=== PATIENT | male | born 1950 | race Caucasian/White ===

== ENCOUNTER 2017-01-25 10:49 | Inpatient (IN) | payer OTHER ==
[~2017-01-25] VITALS: Ht 180.3 cm; Wt 101.3 kg
[2017-01-25] MEDS ORDERED: cloNIDine HCL 0.1 MG TAB ONE (11:19)
[2017-01-25] MEDS ORDERED: cloNIDine HCL 0.1 MG TAB PO ONE (11:30)
[2017-01-25 12:08] LABS: Basophils # (auto) 0 uL; Basophils % (auto) 0.7 % (0.0-2.0); CONDITION Y; Eosinophils # (auto) 0.3 uL; Eosinophils % (auto) 3.8 % (0.0-7.0); Hematocrit 50.4 % (41.0-53.0); Lymphocytes # (auto) 2.3 uL; Lymphocytes % (auto) 31.3 % (10.0-50.0); Mean Corpuscular Hemoglobin 31.5 pg (28.0-32.0); Mean Corpuscular Hgb Conc. 33.7 g/dL (32.0-36.0); Mean Corpuscular Volume 93.4 fL (80.0-100.0); Mean Platelet Volume 8.4 fL (7.4-10.4); Monocytes # (auto) 0.6 uL; Monocytes % (auto) 7.7 % (0.0-12.0); Neutrophils # (auto) 4.1 uL; Neutrophils % (auto) 56.5 % (37.0-80.0); Platelet Count (auto) 286 10^3/uL (140-450); Red Cell Distribution Width 14.7 % (11.6-16.0); White Blood Cell 7.2 10^3/uL (4.4-10.8)
[2017-01-25 12:11] LABS: Urine Bilirubin Negative (Negative); Urine Blood Negative /uL (Negative); Urine Color Yellow (Yellow); Urine Glucose Normal (Normal); Urine Ketone Negative (Negative); Urine Mucus FEW (None Seen); Urine Nitrite Negative (Negative); Urine RBC <1 /hpf (0 - 3); Urine Urobilinogen Normal (Negative); Urine pH 5.5 (5.0-8.0)
[2017-01-25 12:37] LABS: Albumin 3.9 g/dL (3.4-5.0); BUN/Creatinine Ratio 10.2; Bilirubin, Total 0.4 mg/dL (0.2-1.0); Calcium 8.8 mg/dL (8.5-10.1); Magnesium 2.6 mg/dL (1.6-2.6); Potassium 4.3 mmol/L (3.5-5.1); Total Protein 7.7 g/dL (6.4-8.2)
[2017-01-25] MEDS ORDERED: NITROGLYCERIN 0.4 MG SL TAB SL ONE (13:00)
[2017-01-25] MEDS ORDERED: SODIUM CHLORIDE 0.9% 1,000 ML IV ONE (17:01)
[2017-01-25] MEDS ORDERED: METOPROLOL TARTRATE 1MG/1ML-5ML VIAL IV ONE (17:15)
[2017-01-25] MEDS ORDERED: ASPirin 81 mg TAB PO ONE (17:15)
[2017-01-25 17:50] LABS: INR 0.98 (0.9-1.15); Partial Thromboplastin Time 26.5 sec (22.64-33.71); Prothrombin Time 10.7 sec (9.37-12.3)
[2017-01-25] MEDS ORDERED: TEMAZEPAM 15 MG CAP PO PRN (18:45)
[2017-01-25] MEDS: SODIUM CHLORIDE 0.9% 1,000 ML IV SCH (18:45)
[2017-01-25] MEDS ORDERED: NITROGLYCERIN 0.4 MG SL TAB SL PRN (18:45)
[2017-01-25] MEDS ORDERED: LACTULOSE 20Gm/30ML SOLN PO PRN (18:45)
[2017-01-25] MEDS ORDERED: ACETAMINOPHEN 500 MG TAB PO PRN (18:45)
[2017-01-25] MEDS ORDERED: HYDROcodone-ACET 5/325MG TAB PO PRN (18:45)
[2017-01-25] MEDS ORDERED: PROMETHAZINE HCL 25 MG/ML 1ML IV PRN (18:45)
[2017-01-25] MEDS ORDERED: MORPHINE SULF INJ 2 MG/ML SYRINGE 1ML IV PRN ×2 (18:45)
[2017-01-25] MEDS ORDERED: ENALAPRIL MALEATE 10 MG TAB PO ONE (19:00)
[2017-01-25] MEDS ORDERED: PANTOPRAZOLE 40 MG TAB PO ONE (19:00)
[2017-01-25] MEDS ORDERED: ENOXAPARIN SOD 100 MG/1 ML SYRINGE SC ONE (19:13)
[2017-01-25] MEDS ORDERED: NITROGLYCERIN 50MG/250ML 250 ML IV SCH (20:15)
[2017-01-25] MEDS: ATORVASTATIN 20 MG TAB PO SCH (22:05)
[2017-01-25] MEDS: METOPROLOL TARTRATE 25 MG TAB PO SCH (22:06)
[2017-01-26] MEDS: LORazepam 0.5 MG TAB PO PRN ×2 (00:35→20:34)
[2017-01-26 06:41] LABS: Basophils # (auto) 0 uL; Basophils % (auto) 0.5 % (0.0-2.0); CONDITION Y; Eosinophils # (auto) 0.3 uL; Eosinophils % (auto) 3.7 % (0.0-7.0); Hematocrit 47.6 % (41.0-53.0); Hemoglobin 16.2 g/dL (13.5-17.5); Lymphocytes # (auto) 2.2 uL; Lymphocytes % (auto) 25.8 % (10.0-50.0); Mean Corpuscular Hemoglobin 31.8 pg (28.0-32.0); Mean Corpuscular Hgb Conc. 34.1 g/dL (32.0-36.0); Mean Corpuscular Volume 93.3 fL (80.0-100.0); Mean Platelet Volume 8.5 fL (7.4-10.4); Monocytes # (auto) 0.7 uL; Monocytes % (auto) 7.8 % (0.0-12.0); Neutrophils # (auto) 5.4 uL; Neutrophils % (auto) 62.2 % (37.0-80.0); Platelet Count (auto) 253 10^3/uL (140-450); Red Cell Distribution Width 14.6 % (11.6-16.0); White Blood Cell 8.7 10^3/uL (4.4-10.8)
[2017-01-26 07:19] LABS: Albumin 3.4 g/dL (3.4-5.0); BUN/Creatinine Ratio 12.8; Bilirubin, Total 0.5 mg/dL (0.2-1.0); Calcium 8.4 mg/dL (8.5-10.1); Total Protein 6.6 g/dL (6.4-8.2)
[2017-01-26] MEDS: SODIUM CHLORIDE 0.9% 1,000 ML IV SCH ×2 (07:54→21:44)
[2017-01-26] MEDS ORDERED: NITROGLYCERIN 0.2MG/HR TOPICAL PATCH TD SCH (10:00)
[2017-01-26] MEDS: ENOXAPARIN SOD 40 MG/0.4 ML SYRINGE SC SCH (10:27)
[2017-01-26] MEDS: PANTOPRAZOLE 40 MG TAB PO SCH (10:27)
[2017-01-26] MEDS: METOPROLOL TARTRATE 25 MG TAB PO SCH ×2 (10:27→21:41)
[2017-01-26] MEDS: ASPirin 81 mg TAB PO SCH (10:27)
[2017-01-26] MEDS: ENALAPRIL MALEATE 10 MG TAB PO SCH (10:30)
[2017-01-26] MEDS ORDERED: TRAM50TA2 PO (16:15)
[2017-01-26] MEDS ORDERED: ALPR0.5T PO (16:15)
[2017-01-26] MEDS ORDERED: GABA800T97 PO (16:15)
[2017-01-26 20:00] VITALS: BP 151/71
[2017-01-26] MEDS: ATORVASTATIN 20 MG TAB PO SCH (21:40)
[2017-01-26 22:00] VITALS: BP 151/91
[2017-01-27] VITALS (8 sets, daily range): BP systolic 101–167; BP diastolic 71–102
[2017-01-27] MEDS ORDERED: IODIXANOL 320MG/ML 100ML BTL IV ONE (09:18)
[2017-01-27] MEDS ORDERED: LIDOCAINE 2%HCL (LOCAL ANESTH.) INJ 20ML MDV ONE (09:18)
[2017-01-27] MEDS: ENALAPRIL MALEATE 10 MG TAB PO SCH (10:00)
[2017-01-27] MEDS: METOPROLOL TARTRATE 25 MG TAB PO SCH ×2 (10:00→22:28)
[2017-01-27] MEDS: PANTOPRAZOLE 40 MG TAB PO SCH (10:00)
[2017-01-27] MEDS: ASPirin 81 mg TAB PO SCH (10:00)
[2017-01-27] MEDS: ENOXAPARIN SOD 40 MG/0.4 ML SYRINGE SC SCH (10:00)
[2017-01-27] MEDS: SODIUM CHLORIDE 0.9% 1,000 ML IV SCH ×2 (10:34→23:54)
[2017-01-27] MEDS ORDERED: SODIUM CHL 0.9% 0 ML ONE (10:40)
[2017-01-27] MEDS ORDERED: MIDAZOLAM HCL 1MG/1ML-2 ML VIAL ONE ×3 (10:40→12:22)
[2017-01-27] MEDS ORDERED: fentaNYL CITRATE 100 MCG/2 ML VL ONE ×2 (10:40→12:23)
[2017-01-27] MEDS ORDERED: ANGIOMAX 250 MG VIAL IV ONE ×2 (10:40→11:57)
[2017-01-27] MEDS ORDERED: hydrALAZINE HCL 20 MG/ML VL ONE (11:18)
[2017-01-27] MEDS ORDERED: HYDROmorphone HCL 2 MG/ML VL ONE (11:47)
[2017-01-27] MEDS ORDERED: SODIUM CHL 0.9% 50 ML ONE (11:57)
[2017-01-27] MEDS ORDERED: ETOMIDATE (2MG/ML) 20ML VIAL IV ONE (12:08)
[2017-01-27] MEDS ORDERED: SUCCINYLCHOLINE CHLORIDE 20 MG/ML 10ML VIAL IV ONE (12:08)
[2017-01-27] MEDS ORDERED: MAGNESIUM SULFATE 1GM/100ML 200 ML IV ONE (12:19)
[2017-01-27] MEDS ORDERED: NITROGLYCERIN 50MG/250ML 250 ML IV ONE (12:19)
[2017-01-27] MEDS ORDERED: MIDAZOLAM DRIP 50 mg/50mL NS 50 ML IV ONE (12:22)
[2017-01-27] MEDS ORDERED: IOHEXOL 350 MG/ML 100ML IJ ONE (12:26)
[2017-01-27] MEDS ORDERED: PROPOFOL 100 ML IV ONE (12:29)
[2017-01-27] MEDS ORDERED: AMIODARONE HCL (50 MG/ ML) 3 ML VIAL IV ONE (12:43)
[2017-01-27] MEDS: SODIUM BICARBONATE 50ML VIAL 150 ML in D5W 5% 1,000 ML IV SCH (13:00)
[2017-01-27] MEDS ORDERED: EPTIFIBATIDE INJ (2MG/ML) 10ML VIAL IV ONE (13:13)
[2017-01-27] MEDS ORDERED: NOREPINEPHRINE BITARTRATE 250 ML IV ONE (13:21)
[2017-01-27] MEDS ORDERED: ADENOSINE 6 MG/2 ML INJ IV ONE (13:26)
[2017-01-27] MEDS ORDERED: EPTIFIBATIDE DRIP(0.75MG/ML) 100 ML IV ONE (13:35)
[2017-01-27] MEDS ORDERED: ASPirin 325 MG TAB ONE (15:03)
[2017-01-27] MEDS ORDERED: CLOPIDOGREL 300 MG TAB ONE (15:03)
[2017-01-27 15:19] LABS: Blood 02Sat 98.3 % (96-100); Blood COHb 0.9 % (0.5-1.5); Blood MetHb 0.5 % (0.0-1.5); HCO3 22.7 mmol/L (22-26.0); HHb 1.7 % (0.0-5.0); MODE VENT - A/C; O2Hb 96.9 % (94.0-97.0); PCO2 35.2 mmHg (35.0-45.0); PCO2(T) 35.2 mmHg (35.0-45.0); PO2 119.2 mmHg (80.0-100.0); PO2(T) 119.2 mmHg (80.0-100.0); Room 0289T; Sample Type Arterial; pH 7.427 (7.350-7.450)
[2017-01-27] MEDS ORDERED: AMIODARONE HCL 900 MG in DEXTROSE 500 ML IV SCH ×2 (15:41→21:41)
[2017-01-27] MEDS ORDERED: NITROGLYCERIN 50MG/250ML 250 ML IV SCH (15:45)
[2017-01-27] MEDS ORDERED: EPTIFIBATIDE DRIP(0.75MG/ML) 100 ML IV SCH (15:45)
[2017-01-27] MEDS ORDERED: CLOPIDOGREL 300 MG TAB PO ONE (15:45)
[2017-01-27] MEDS ORDERED: ASPirin 325 MG TAB PO ONE (15:45)
[2017-01-27] MEDS: MIDAZOLAM DRIP 50 mg/50mL NS 50 ML IV SCH (18:00)
[2017-01-27 18:11] LABS: Basophils # (auto) 0 uL; Basophils % (auto) 0.1 % (0.0-2.0); CONDITION Y; Eosinophils # (auto) 0.1 uL; Eosinophils % (auto) 0.5 % (0.0-7.0); Hematocrit 51.6 % (41.0-53.0); Hemoglobin 17.3 g/dL (13.5-17.5); Lymphocytes # (auto) 1.6 uL; Lymphocytes % (auto) 12.6 % (10.0-50.0); Mean Corpuscular Hemoglobin 30.9 pg (28.0-32.0); Mean Corpuscular Hgb Conc. 33.4 g/dL (32.0-36.0); Mean Corpuscular Volume 92.5 fL (80.0-100.0); Mean Platelet Volume 8.6 fL (7.4-10.4); Monocytes # (auto) 1.2 uL; Monocytes % (auto) 9.4 % (0.0-12.0); Neutrophils % (auto) 77.4 % (37.0-80.0); Platelet Count (auto) 283 10^3/uL (140-450); Red Cell Distribution Width 14.5 % (11.6-16.0); White Blood Cell 12.9 10^3/uL (4.4-10.8)
[2017-01-27 18:15] LABS: Calcium 8.2 mg/dL (8.5-10.1)
[2017-01-27] MEDS: PROPOFOL 100 ML IV SCH (18:15)
[2017-01-27 18:19] LABS: Potassium 3.9 mmol/L (3.5-5.1)
[2017-01-27] MEDS: ATORVASTATIN 20 MG TAB PO SCH (22:26)
[2017-01-28] VITALS (30 sets, daily range): BP systolic 88–156; BP diastolic 44–82
[2017-01-28] MEDS: SODIUM BICARBONATE 50ML VIAL 150 ML in D5W 5% 1,000 ML IV SCH (00:30)
[2017-01-28 04:02] LABS: Basophils # (auto) 0 uL; Basophils % (auto) 0.2 % (0.0-2.0); CONDITION Y; Eosinophils # (auto) 0 uL; Eosinophils % (auto) 0.1 % (0.0-7.0); Hematocrit 47.9 % (41.0-53.0); Hemoglobin 16.4 g/dL (13.5-17.5); Lymphocytes # (auto) 0.8 uL; Lymphocytes % (auto) 5.5 % (10.0-50.0); Mean Corpuscular Hemoglobin 31.6 pg (28.0-32.0); Mean Corpuscular Hgb Conc. 34.3 g/dL (32.0-36.0); Mean Platelet Volume 8.7 fL (7.4-10.4); Monocytes # (auto) 1.3 uL; Monocytes % (auto) 9.4 % (0.0-12.0); Neutrophils # (auto) 11.9 uL; Neutrophils % (auto) 84.8 % (37.0-80.0); Platelet Count (auto) 271 10^3/uL (140-450); Red Cell Distribution Width 14.5 % (11.6-16.0)
[2017-01-28 04:30] LABS: Albumin 3.5 g/dL (3.4-5.0); BUN/Creatinine Ratio 16.7; Bilirubin, Total 0.6 mg/dL (0.2-1.0); Calcium 8.2 mg/dL (8.5-10.1); Potassium 3.3 mmol/L (3.5-5.1); Total Protein 7.1 g/dL (6.4-8.2)
[2017-01-28 05:07] LABS: INR 1.04 (0.9-1.15); Prothrombin Time 11.3 sec (9.37-12.3)
[2017-01-28] MEDS ORDERED: NOREPINEPHRINE BITARTRATE 250 ML IV ONE (07:33)
[2017-01-28] MEDS: NOREPINEPHRINE BITARTRATE 250 ML IV SCH (07:40)
[2017-01-28] MEDS ORDERED: POTASSIUM CHL 20MEQ/100ML 200 ML IV ONE (07:55)
[2017-01-28 08:00] LABS: Allen Test Modified; Base Excess -0.3 mmol/L (-2.0-2.0); Blood MetHb 0.3 % (0.0-1.5); HCO3 22.4 mmol/L (22-26.0); HHb 7.9 % (0.0-5.0); MODE VENT - A/C; O2Hb 90.8 % (94.0-97.0); PCO2 32.1 mmHg (35.0-45.0); PCO2(T) 32.1 mmHg (35.0-45.0); PO2 58.9 mmHg (80.0-100.0); PO2(T) 58.9 mmHg (80.0-100.0); Sample Type Arterial; pH 7.462 (7.350-7.450)
[2017-01-28] MEDS: POTASSIUM CHL 20MEQ/100ML 100 ML IV SCH ×2 (08:15→10:15)
[2017-01-28] MEDS ORDERED: VANCOMYCIN PER PHARMACY 0 MG IV SCH (08:45)
[2017-01-28] MEDS: PROPOFOL 100 ML IV SCH ×3 (10:00→17:48)
[2017-01-28] MEDS: METOPROLOL TARTRATE 25 MG TAB PO SCH ×2 (10:00→11:48)
[2017-01-28] MEDS: ENALAPRIL MALEATE 10 MG TAB PO SCH (10:00)
[2017-01-28] MEDS ORDERED: PANTOPRAZOLE SODIUM 40 MG/10 ML VIAL IV ONE (10:34)
[2017-01-28] MEDS: MIDAZOLAM DRIP 50 mg/50mL NS 50 ML IV SCH ×2 (10:43→16:48)
[2017-01-28] MEDS: ASPirin 81 mg TAB PO SCH (10:52)
[2017-01-28] MEDS: VANCOMYCIN 1GM/250ML D5W 250 ML IV SCH ×2 (10:52→17:49)
[2017-01-28] MEDS: CLOPIDOGREL BISULFATE 75 MG TAB PO SCH (10:52)
[2017-01-28] MEDS ORDERED: DOPamine 1600MCG/ML 250 ML IV ONE (12:24)
[2017-01-28] MEDS ORDERED: ACETAMINOPHEN 650 mg PER 20 mL UD ONE ×2 (12:29→12:54)
[2017-01-28] MEDS: DOPamine 1600MCG/ML 250 ML IV SCH (12:54)
[2017-01-28] MEDS ORDERED: ACETAMINOPHEN 650 mg PER 20 mL UD GT PRN (13:30)
[2017-01-28] MEDS: SODIUM CHLORIDE 0.9% 1,000 ML IV SCH ×2 (13:34→17:30)
[2017-01-28] MEDS: FAMOTIDINE (10MG/ML) 2ML VL IV SCH ×2 (14:00→22:00)
[2017-01-28] MEDS ORDERED: LIDOCAINE 1% HCL (LOCAL ANESTH.) INJ 20ML MDV ID ONE (18:00)
[2017-01-28] MEDS ORDERED: DEXTROSE (50%) 50ML SYRG IV PRN (19:00)
[2017-01-28] MEDS: ATORVASTATIN 20 MG TAB PO SCH (22:00)
[2017-01-28] MEDS: SODIUM CHLOR 0.9% PF (SALINE LOCK) 10ML VIAL IV SCH (22:00)
[2017-01-29] VITALS (31 sets, daily range): BP systolic 98–144; BP diastolic 51–90
[2017-01-29] MEDS: VANCOMYCIN 1GM/250ML D5W 250 ML IV SCH ×3 (02:26→18:00)
[2017-01-29 04:09] LABS: Basophils # (auto) 0 uL; Basophils % (auto) 0.2 % (0.0-2.0); CONDITION Y; Eosinophils # (auto) 0 uL; Eosinophils % (auto) 0.2 % (0.0-7.0); Hematocrit 45.4 % (41.0-53.0); Hemoglobin 15.5 g/dL (13.5-17.5); Lymphocytes % (auto) 6.6 % (10.0-50.0); Mean Corpuscular Hemoglobin 31.5 pg (28.0-32.0); Mean Corpuscular Hgb Conc. 34.1 g/dL (32.0-36.0); Mean Corpuscular Volume 92.4 fL (80.0-100.0); Mean Platelet Volume 8.8 fL (7.4-10.4); Monocytes # (auto) 1.3 uL; Monocytes % (auto) 8.2 % (0.0-12.0); Neutrophils # (auto) 13.2 uL; Neutrophils % (auto) 84.8 % (37.0-80.0); Platelet Count (auto) 215 10^3/uL (140-450); Red Cell Distribution Width 14.9 % (11.6-16.0); White Blood Cell 15.6 10^3/uL (4.4-10.8)
[2017-01-29 04:22] LABS: INR 1.11 (0.9-1.15); Partial Thromboplastin Time 27.3 sec (22.64-33.71); Prothrombin Time 12.1 sec (9.37-12.3)
[2017-01-29 04:31] LABS: Albumin 2.8 g/dL (3.4-5.0); BUN/Creatinine Ratio 13.3; Calcium 7.4 mg/dL (8.5-10.1); Potassium 3.5 mmol/L (3.5-5.1)
[2017-01-29 04:34] LABS: Bilirubin, Total 0.6 mg/dL (0.2-1.0); Total Protein 6.2 g/dL (6.4-8.2)
[2017-01-29] MEDS: InsuLIN REG 1unit/0.01ml Soln (100units/ml) SC SCH ×5 (06:25→23:45)
[2017-01-29] MEDS: ACCU-CHEK COMFORT CURVE STRIP VI SCH ×5 (06:25→23:45)
[2017-01-29] MEDS: SODIUM CHLORIDE 0.9% 1,000 ML IV SCH ×4 (08:00→20:00)
[2017-01-29] MEDS: DOPamine 1600MCG/ML 250 ML IV SCH (08:00)
[2017-01-29 08:16] LABS: Allen Test No; Blood 02Sat 97.2 % (96-100); Blood MetHb 0.3 % (0.0-1.5); HCO3 24.2 mmol/L (22-26.0); HHb 2.8 % (0.0-5.0); MODE VENT - A/C; O2Hb 95.9 % (94.0-97.0); PCO2 38.4 mmHg (35.0-45.0); PCO2(T) 38.4 mmHg (35.0-45.0); PIP 19; PO2 98.7 mmHg (80.0-100.0); PO2(T) 98.7 mmHg (80.0-100.0); Sample Type Arterial; pH 7.418 (7.350-7.450)
[2017-01-29] MEDS: MIDAZOLAM DRIP 50 mg/50mL NS 50 ML IV SCH ×2 (08:40→16:00)
[2017-01-29] MEDS: PROPOFOL 100 ML IV SCH ×3 (08:45→17:34)
[2017-01-29] MEDS ORDERED: IOHEXOL 350 MG/ML 100ML IJ ONE (08:48)
[2017-01-29] MEDS ORDERED: LIDOCAINE 2%HCL (LOCAL ANESTH.) INJ 20ML MDV ONE (08:49)
[2017-01-29] MEDS: NOREPINEPHRINE BITARTRATE 250 ML IV SCH (09:00)
[2017-01-29] MEDS ORDERED: SODIUM CHL 0.9% 50 ML ONE (09:17)
[2017-01-29] MEDS ORDERED: ANGIOMAX 250 MG VIAL IV ONE (09:17)
[2017-01-29] MEDS ORDERED: ATROPINE SULF 0.5 MG/5ML SYR ONE (09:35)
[2017-01-29] MEDS: CLOPIDOGREL BISULFATE 75 MG TAB PO SCH (10:00)
[2017-01-29] MEDS: ASPirin 81 mg TAB PO SCH (10:00)
[2017-01-29] MEDS: FAMOTIDINE (10MG/ML) 2ML VL IV SCH ×2 (10:00→21:42)
[2017-01-29] MEDS ORDERED: PANTOPRAZOLE SODIUM 40 MG/10 ML VIAL IV SCH (10:00)
[2017-01-29] MEDS: METOPROLOL TARTRATE 25 MG TAB PO SCH (10:00)
[2017-01-29] MEDS: ENALAPRIL MALEATE 10 MG TAB PO SCH (10:00)
[2017-01-29] MEDS ORDERED: HEPARIN SODIUM (PORCINE) 5000 UNITS/ML 1ML VIAL ONE (10:49)
[2017-01-29] MEDS ORDERED: HEPARIN DRIP/D5W 100UNITS/ML 250 ML IV SCH (11:53)
[2017-01-29 11:59] LABS: Allen Test No; Base Excess -4.7 mmol/L (-2.0-2.0); Blood 02Sat 97.7 % (96-100); Blood MetHb 0.2 % (0.0-1.5); HCO3 19.8 mmol/L (22-26.0); HHb 2.3 % (0.0-5.0); MODE VENT - A/C; O2Hb 96.5 % (94.0-97.0); PCO2 35.5 mmHg (35.0-45.0); PCO2(T) 35.5 mmHg (35.0-45.0); PIP 20; PO2 102.7 mmHg (80.0-100.0); PO2(T) 102.7 mmHg (80.0-100.0); Sample Type Arterial; pH 7.364 (7.350-7.450)
[2017-01-29] MEDS: SODIUM CHLOR 0.9% PF (SALINE LOCK) 10ML VIAL IV SCH ×2 (12:00→21:42)
[2017-01-29] MEDS ORDERED: HEPARIN SODIUM (PORCINE) 5000 UNITS/ML 1ML VIAL IV ONE (12:00)
[2017-01-29] MEDS ORDERED: SODIUM CHLORIDE 0.9% 300 ML IV ONE (12:15)
[2017-01-29] MEDS: POTASSIUM CHL 20MEQ/100ML 100 ML IV SCH ×2 (13:00→15:30)
[2017-01-29] MEDS: HEPARIN DRIP/D5W 100UNITS/ML 250 ML IV SCH (13:59)
[2017-01-29] MEDS ORDERED: POTASSIUM CHL 20MEQ/100ML 200 ML IV ONE (15:25)
[2017-01-29 16:42] LABS: Allen Test No; Base Excess -2.1 mmol/L (-2.0-2.0); Blood 02Sat 96.5 % (96-100); Blood COHb 0.7 % (0.5-1.5); Blood MetHb 0.3 % (0.0-1.5); HCO3 22.2 mmol/L (22-26.0); HHb 3.5 % (0.0-5.0); MODE VENT - A/C; O2Hb 95.5 % (94.0-97.0); PCO2 36.8 mmHg (35.0-45.0); PCO2(T) 36.8 mmHg (35.0-45.0); PIP 20; Sample Type Arterial; pH 7.398 (7.350-7.450)
[2017-01-29 18:17] LABS: INR 1.05 (0.9-1.15); Partial Thromboplastin Time 41.8 sec (22.64-33.71); Prothrombin Time 11.4 sec (9.37-12.3)
[2017-01-29] MEDS: ATORVASTATIN 20 MG TAB PO SCH (21:42)
[2017-01-29 22:23] LABS: Allen Test Yes; Base Excess -4.3 mmol/L (-2.0-2.0); Blood 02Sat 96.6 % (96-100); Blood COHb 0.5 % (0.5-1.5); Blood MetHb 0.3 % (0.0-1.5); HCO3 20.1 mmol/L (22-26.0); HHb 3.4 % (0.0-5.0); MODE VENT - A/C; O2Hb 95.8 % (94.0-97.0); PCO2 35.5 mmHg (35.0-45.0); PCO2(T) 35.5 mmHg (35.0-45.0); PO2 91.1 mmHg (80.0-100.0); PO2(T) 91.1 mmHg (80.0-100.0); Sample Type Arterial; pH 7.371 (7.350-7.450)
[2017-01-29] MEDS ORDERED: SODIUM BICARBONATE 8.4 % INJ 50ML VIAL IV ONE (22:30)
[2017-01-29] MEDS ORDERED: SODIUM BICARBONATE 8.4% INJ 50ML SYRINGE ONE (22:41)
[2017-01-29 23:08] LABS: INR 1.04 (0.9-1.15); Prothrombin Time 11.3 sec (9.37-12.3)
[2017-01-30] VITALS (16 sets, daily range): BP systolic 78–129; BP diastolic 60–78
[2017-01-30] MEDS: SODIUM CHLORIDE 0.9% 1,000 ML IV SCH ×2 (01:00→09:12)
[2017-01-30] MEDS: VANCOMYCIN 1GM/250ML D5W 250 ML IV SCH ×2 (01:49→09:54)
[2017-01-30] MEDS: MIDAZOLAM DRIP 50 mg/50mL NS 50 ML IV SCH ×3 (04:00→09:12)
[2017-01-30] MEDS: PROPOFOL 100 ML IV SCH ×3 (04:00→09:12)
[2017-01-30 04:08] LABS: INR 1.01 (0.9-1.15); Partial Thromboplastin Time 37.6 sec (22.64-33.71)
[2017-01-30 04:27] LABS: Magnesium 2.2 mg/dL (1.6-2.6); Potassium 3.8 mmol/L (3.5-5.1)
[2017-01-30 04:29] LABS: BUN/Creatinine Ratio 21.1; Calcium 7.1 mg/dL (8.5-10.1)
[2017-01-30 04:36] LABS: Basophils # (auto) 0.1 uL; Basophils % (auto) 0.6 % (0.0-2.0); Eosinophils # (auto) 0.1 uL; Eosinophils % (auto) 0.8 % (0.0-7.0); Lymphocytes # (auto) 1.2 uL; Lymphocytes % (auto) 8.3 % (10.0-50.0); Monocytes % (auto) 6.7 % (0.0-12.0); Neutrophils # (auto) 12.2 uL; Neutrophils % (auto) 83.6 % (37.0-80.0); White Blood Cell 14.6 10^3/uL (4.4-10.8)
[2017-01-30 04:37] LABS: CONDITION Y; Mean Corpuscular Hemoglobin 31.7 pg (28.0-32.0); Mean Corpuscular Hgb Conc. 34.1 g/dL (32.0-36.0); Mean Corpuscular Volume 92.8 fL (80.0-100.0); Mean Platelet Volume 9.4 fL (7.4-10.4); Platelet Count (auto) 215 10^3/uL (140-450); Red Cell Distribution Width 14.8 % (11.6-16.0)
[2017-01-30] MEDS: ACCU-CHEK COMFORT CURVE STRIP VI SCH ×2 (05:31→12:27)
[2017-01-30] MEDS: InsuLIN REG 1unit/0.01ml Soln (100units/ml) SC SCH ×2 (05:32→12:28)
[2017-01-30] MEDS: DOPamine 1600MCG/ML 250 ML IV SCH (06:30)
[2017-01-30] MEDS: NOREPINEPHRINE BITARTRATE 250 ML IV SCH ×2 (06:30→09:00)
[2017-01-30 09:04] LABS: Base Excess -4.1 mmol/L (-2.0-2.0); Blood 02Sat 97.5 % (96-100); Blood COHb 0.3 % (0.5-1.5); Blood MetHb 0.6 % (0.0-1.5); HCO3 19.5 mmol/L (22-26.0); HHb 2.5 % (0.0-5.0); MODE VENT - A/C; O2Hb 96.6 % (94.0-97.0); PCO2 33.2 mmHg (35.0-45.0); PCO2(T) 33.2 mmHg (35.0-45.0); PO2 103.7 mmHg (80.0-100.0); PO2(T) 103.7 mmHg (80.0-100.0); Sample Type Arterial; pH 7.387 (7.350-7.450)
[2017-01-30] MEDS: FAMOTIDINE (10MG/ML) 2ML VL IV SCH (09:54)
[2017-01-30] MEDS ORDERED: CALCIUM GLUC 4.65 MEQ/10ML 4.65 MEQ in SODIUM CHL 0.9% 50 ML IV ONE (10:00)
[2017-01-30] MEDS ORDERED: POTASSIUM CHL 20MEQ/100ML 100 ML IV ONE (10:00)
[2017-01-30] MEDS ORDERED: D5W/SOD CHL 0.45% 1,000 ML IV SCH (10:00)
[2017-01-30] MEDS: SODIUM CHLOR 0.9% PF (SALINE LOCK) 10ML VIAL IV SCH (10:05)
[2017-01-30] MEDS ORDERED: chlorproMAZINE HCL 25 MG/1 ML AMP IM ONE (11:00)
[2017-01-30] MEDS ORDERED: chlorproMAZINE HCL 25 MG TAB PO PRN (11:00)
[2017-01-30 12:32] LABS: INR 1.03 (0.9-1.15); Prothrombin Time 11.2 sec (9.37-12.3)
[2017-01-30 12:32] LABS: Base Excess -2.7 mmol/L (-2.0-2.0); Blood 02Sat 95.3 % (96-100); Blood COHb 0.5 % (0.5-1.5); Blood MetHb 0.2 % (0.0-1.5); HCO3 21.6 mmol/L (22-26.0); HHb 4.7 % (0.0-5.0); MODE VENT - A/C; O2Hb 94.6 % (94.0-97.0); PCO2 36.1 mmHg (35.0-45.0); PCO2(T) 36.1 mmHg (35.0-45.0); PO2 77.1 mmHg (80.0-100.0); PO2(T) 77.1 mmHg (80.0-100.0); Sample Type Arterial; pH 7.394 (7.350-7.450)
[2017-01-30] MEDS: HEPARIN DRIP/D5W 100UNITS/ML 250 ML IV SCH (12:59)
== END 2017-01-30 17:43 | disposition short-term general hospital (02) | DRG 270 ==
LOC: ER 10:49 → TELE 10:50 → TELE-E-ADS 01-26 12:03 → TELE-WESTW 01-26 18:53 → ICU WEST 01-27 16:28
PROVIDERS: ADMIT Internal Medicine; ATTEND Internal Medicine
PROC: B2111ZZ Fluoroscopy of Multiple Coronary Arteries using Low Osmolar Contrast (ICD-10-PCS; principal; 2017-01-27)
PROC: 027036Z Dilation of Coronary Artery, One Artery with Three Drug-eluting Intraluminal Devices, Percutaneous Approach (ICD-10-PCS; 2017-01-27)
PROC: 02C03ZZ Extirpation of Matter from Coronary Artery, One Artery, Percutaneous Approach (ICD-10-PCS; 2017-01-27)
PROC: B240ZZ3 Ultrasonography of Single Coronary Artery, Intravascular (ICD-10-PCS; 2017-01-27)
PROC: 5A1945Z Respiratory Ventilation, 24-96 Consecutive Hours (ICD-10-PCS; 2017-01-27)
PROC: 0BH17EZ Insertion of Endotracheal Airway into Trachea, Via Natural or Artificial Opening (ICD-10-PCS; 2017-01-27)
PROC: 02H633Z Insertion of Infusion Device into Right Atrium, Percutaneous Approach (ICD-10-PCS; 2017-01-28)
PROC: 5A02110 Assistance with Cardiac Output using Balloon Pump, Intermittent (ICD-10-PCS; 2017-01-29)
PROC: 4A023N7 Measurement of Cardiac Sampling and Pressure, Left Heart, Percutaneous Approach (ICD-10-PCS; 2017-01-29)
PROC: B2111ZZ Fluoroscopy of Multiple Coronary Arteries using Low Osmolar Contrast (ICD-10-PCS; 2017-01-29)
PROC: B2151ZZ Fluoroscopy of Left Heart using Low Osmolar Contrast (ICD-10-PCS; 2017-01-29)
DX: I21.4 Non-ST elevation (NSTEMI) myocardial infarction (principal); J96.00 Acute respiratory failure, unspecified whether with hypoxia or hypercapnia; I25.42 Coronary artery dissection; N40.0 Benign prostatic hyperplasia without lower urinary tract symptoms; I25.10 Atherosclerotic heart disease of native coronary artery without angina pectoris; E78.5 Hyperlipidemia, unspecified; I10 Essential (primary) hypertension; Z82.3 Family history of stroke; Z82.49 Family history of ischemic heart disease and other diseases of the circulatory system; Z83.3 Family history of diabetes mellitus; I25.2 Old myocardial infarction; Z95.5 Presence of coronary angioplasty implant and graft; Z79.82 Long term (current) use of aspirin; Z79.899 Other long term (current) drug therapy
CPT/HCPCS: 36415; 36569; 36600; 71010; 71020; 80048; 80053; 80202; 80307; 81001; 82550; 82805; 82962; 83735; 84132; 84443; 84484; 85025; 85379; 85610; 85652; 85730; 86141; 86850; 86900; 86901; 86920; 87070; 87081; 87205; 92941; 92978; 93005; 93306; 93459; 94003; 94761; 96372; 96374; 99152; C1874; C1887; C9113; J0153; J0330; J0461; J1815; J2250; J2704; J3480; J3490; Q0161; Q9967